=== PATIENT | male | born 1960 | race Caucasian/White ===

== ENCOUNTER 2017-01-30 13:20 | Emergency (ER) | payer OTHER ==
[~2017-01-30] VITALS: Ht 170.2 cm; Wt 83.9 kg
[2017-01-30 13:26] VITALS: BP 131/87
--- NOTE | 2017-01-30 13:37 | ED UPPER/LOWER EXTREMITY COMPL ---
History of Present Illness General Chief Complaint: Laceration Procedure Stated Complaint: WRIST LAC Source: patient, old records Exam Limitations: no limitations Vital Signs & Intake/Output Vital Signs & Intake/Output Vital Signs Date Time Temp Pulse Resp B/P Pulse O2 O2 Flow FiO2 Ox Delivery Rate 01/30 1326 98.8 90 20 131/87 97 Room Air Room Air Allergies Coded Allergies: Penicillins (Intermediate, RASH 01/30/17) Reconcile Medications No Known Home Medications Triage Note: PT TO ED S/P "CUT RIGHT FOREARM WITH HATCHET", SMALL LACERATION NOTED, BLEEDING CONTROLLED. LAST TETANUS: LESS THAN 10 YEARS AGO. Triage Nurses Notes Reviewed? yes Onset: Abrupt Duration: hour(s): (1), constant Timing: recent history Severity: mild Severity Numbers: 3 Pain/Injury Location: Right: Forearm. Method of Injury: laceration No Modifying Factors: none Associated Symptoms: none HPI: 56 year old male presents to the ER for evaluation s/p sustaining laceration to his right forearm when he cut it accidently with a hatchet that Bounced back while he was acting out a piece of wood. He is complaining of mild aching pain over the forearm. His last tetanus was approximately 7 years ago. He is not taken anything for the pain which is mild aching, 3 out of 10 nonradiating. He denies any difficulty with range of motion of the wrist hand or fingers no numbness or tingling. (HERNANDO RAMIREZ) Past History Travel History Traveled to [place] past 21 day No Medical History Any Pertinent Medical History? 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 No (HERNANDO RAMIREZ) Review of Systems Review of Systems Constitutional: Reports: see HPI. All Other Systems: Reviewed and Negative Comments Review of systems: See HPI, All other systems negative. Constitutional, no chills no fever, no malaise HEENT: no sore throat no congestion, no ear pain Cardiovascular: No chest pain Skin, no rashes Respiratory: no cough GI: No nausea no vomiting, Muscle skeletal: No joint pain, no back pain, no neck pain, Neurologic: No numbness no headache Psych: No stress Heme/endocrine: No bruising no bleeding Immunology: No lymphadenopathy, (HERNANDO RAMIREZ) Physical Exam Physical Exam General Appearance: well developed/nourished, no apparent distress, alert, awake Comments: Well-developed well-nourished patient in no apparent distress. HEENT: Atraumatic, extraocular motion intact Neck: Supple, FROM Back: FROM Cardiovascular: Regular rate and rhythms Respiratory: No respiratory distress. Patient speaking in full complete sentences. Shoulder: Atraumatic/Stable. FROM . Elbow: Atraumatic/stable. FROM. No laxity Upper arm/Forearm: 1 cm superficial linear laceration noted over the dorsal aspect of the distal right forearm, there is no visualized or palpated foreign body no deep tendon injury, Nontender. No edema, 5 out of 5 electric track switch maintainer strength noted to bilateral upper extremities full sensation b/l Hand/Wrist: Atraumatic/stable. Skin intact. FROM Pulses: Normal/equal radial pulses bilaterally. Brisk cap refill Lower Extremities: full range of motion Neuro: Alert and oriented x3 Skin: Warm & dry;No appreciable rash on exposed skin Psych: Mood affect normal, normal memory normal judgment. Diagram Right Arm Back 1) laceration as described above (HERNANDO RAMIREZ) Progress Differential Diagnosis: sprain, tendon injury, fx, embedded fb, tendon injury Plan of Care: Current Medications Sig/Charles Start time Last Medication Dose Stop Time Status Admin Ibuprofen 800 MG ONCE ONE 01/30 1400 UNVr (Motrin) 01/30 140 Tetanus/Diphtheria 0.5 ML ONCE ONE 01/30 1400 UNVr Toxoids Adsorbed 01/30 1401 (Decavac) Patient medicated tetanus, Motrin 800 mg by mouth. The wound was thoroughly irrigated with normal saline Betadine peroxide sutures x 2 3-0 administered by LARISA sooner under my direct supervision patient tolerated procedure well. Discussed with him need to return in 7-10 days for suture removal, return anytime sooner with any concerns or signs of infection discussed with him the possibility for biopsy on examination or deep tendon injury exists (HERNANDO RAMIREZ) Departure Departure Time of Disposition: 1353 Disposition: HOME OR SELF CARE Condition: Stable Clinical Impression Primary Impression: Laceration Additional Instructions: Keep area clean and covered as discussed, bacitracin daily. Return to ER in 7- 10 days for suture removal. The possibility of a retained foreign body not seen during examination today or deep tendon injury exists. Return to ER anytime sooner with any concerns or signs of infection: Redness, warmth, swelling discharge fever or chills. Departure Forms: Customer Survey General Discharge Information Prescriptions: Current Visit Scripts No Known Home Medications (HERNANDO RAMIREZ) PA/STEEL RIGGER Co-Sign Statement Statement: ED Attending supervision documentation- [] I saw and evaluated the patient. I have also reviewed all the pertinent lab results and diagnostic results. I agree with the findings and the plan of care as documented in the PA's/STEEL RIGGER's documentation. x I have reviewed the ED Record and agree with the PA's/STEEL RIGGER's documentation. [] Additions or exceptions (if any) to the PAs/STEEL RIGGER's note and plan are summarized below: [] (FORREST MACARIO,DYAN) Procedures Laceration/Wound Repair Laceration/Wound Repair: Wound Location: upper extremity (right) Wound's Depth, Shape: linear, superficial Wound Length (cm): 1 Wound Explored: clean, no foreign body removed, irrigated extensively Irrigated w/ Saline (ccs): 300 Betadine Prep? Yes Anesthesia: 1% lidocaine Volume Anesthetic (ccs): 3 Wound Repaired With: sutures Suture Size/Type: 3:0 Number of Sutures: 2 Layer Closure? No Sterile Dressing Applied: Yes Date of Last Tetanus: 01/30/17 Tetanus Status: up to date (HERNANDO RAMIREZ)
== END 2017-01-30 14:18 ==
LOC: ERH 13:20
DX: S51.811A Laceration without foreign body of right forearm, initial encounter (principal); W27.0XXA Contact with workbench tool, initial encounter; Y93.89 Activity, other specified; Y92.9 Unspecified place or not applicable
CPT/HCPCS: 90471; 90714